=== PATIENT | male | born 1955 | race Caucasian/White ===

== ENCOUNTER 2019-11-30 07:57 | Observation (INO) | payer MEDICARE ==
--- NOTE | 2019-11-28 14:55 | HP ---
AMENDED REPORT: DATE OF SURGERY: 11/30/2019 ANTICIPATED PROCEDURE: Left inguinal hernia. HISTORY OF PRESENT ILLNESS: The patient has moderate sized symptomatic left inguinal hernia. He presents for repair. PAST MEDICAL HISTORY: COPD. Myasthenia gravis. Myositis. ALLERGIES: BACTRIM. IODINATED CONTRAST MEDIA. MEDICATIONS: Per chart. PAST SURGICAL HISTORY: None. SOCIAL HISTORY: Negative. FAMILY HISTORY: Negative. REVIEW OF SYSTEMS: CVS: Negative. PULMONARY: Negative. PHYSICAL EXAMINATION: VITAL SIGNS: Normal. CHEST: Clear. COR: Regular. ABDOMEN: Left inguinal hernia. IMPRESSION: Symptomatic left inguinal hernia. PLAN: Repair.
[~2019-11-30 07:57] MED LIST: KEFZOL 1 GM ONE; Lactated Ringers 1,000 ML IV ONE; Sensorcaine 0.25% 10 ML ONE
[2019-11-30] MEDS ORDERED: CEFAZOLIN 2 GM-D5W BAG** 2 GM/50 ML ML IV ONE ×2 (08:16→08:22)
[2019-11-30] MEDS ORDERED: Decadron 4 MG INJ ONE ×2 (08:19→10:29)
[2019-11-30] MEDS ORDERED: Naropin 0.5% 30 ML VIAL ONE (08:19)
[2019-11-30] MEDS ORDERED: DIPRIVAN 200 MG/20 ML IV ONE (08:20)
[2019-11-30] MEDS ORDERED: Ketamine HCl 50 MG/ML ONE (08:20)
[2019-11-30] MEDS ORDERED: Lactated Ringers 1,000 ML IV SCH (08:30)
[2019-11-30] MEDS ORDERED: Versed 2 MG/2 ML Injection ONE (09:39)
[2019-11-30] MEDS ORDERED: Zofran 4 MG/2 ML VIAL ONE ×2 (09:39→10:29)
[2019-11-30] MEDS ORDERED: TORAdol 30 mg Injection ONE (10:29)
[2019-11-30 11:47] LABS: Appearance CLEAR (CLEAR); Bacteria RARE /HPF (NEGATIVE); Bilirubin NEGATIVE (NEGATIVE); Blood SMALL Ery/ul (0-5); Epithelial Cells RARE /HPF (FEW); Glucose NEGATIVE (NEGATIVE); Ketones NEGATIVE (NEGATIVE); Leukocyte Esterase NEGATIVE (NEGATIVE); Mucus SLIGHT /HPF (NEGATIVE); Nitrite NEGATIVE (NEGATIVE); Protein,Urine Dip NEGATIVE (Negative); RBC 0-2 /HPF (0-2); Specific Gravity 1.003 (1.005-1.025); Urobilinogen NEGATIVE mg/dL (0-1)
--- NOTE | 2019-11-30 14:00 | OP ---
SURGERY DATE/TIME: 11/30/2019 0938 PREOPERATIVE DIAGNOSIS: Left inguinal hernia. POSTOPERATIVE DIAGNOSIS: Left inguinal hernia. PROCEDURE: Left inguinal herniorrhaphy primary repair. No mesh per patient request. SURGEON: kB Judd M.D. ANESTHESIA: Spinal. COMPLICATIONS: None. CONDITION: Stable. ESTIMATED BLOOD LOSS: None. INDICATION: The patient with symptomatic left inguinal hernia. Marked preoperatively. DESCRIPTION OF PROCEDURE: Taken to surgery. Routine prep and drape. 0.25% Marcaine. Curvilinear incision. External oblique opened. External oblique was quite weak, thin and attenuated. Cord skeletonized. Direct hernia present. It was invaginated. It was tucked in with suture #0 Prolene three sutures. Conjoin tendon to Karri's. Relaxing incision made right in the midline 1.5 cm vertical. It came together nicely. Sutures then continued from the conjoin tendon over to the Poupart's ligament. The internal ring was one clamp tight. Hemostasis satisfactory. External oblique closed with 0 Vicryl. Abdifatah approximated with 2-0 Vicryl. Skin closed with 4-0 Vicryl. Steri-Strips applied. Sterile dressing applied. The patient tolerated the procedure satisfactorily.
[2019-11-30 15:22] LABS: Hematocrit 35.8 % (42-50); Hemoglobin 12.3 gm/dl (12.5-18.0)
[2019-11-30] MEDS ORDERED: D5W/0.45NS W/ 20mEq KCl 1000 ML 1,000 ML IV SCH (15:30)
[2019-11-30] MEDS: NORCO 5/325 MG PO PRN (15:56)
[2019-11-30] MEDS ORDERED: Zofran 4 MG/2 ML VIAL IV PRN (16:55)
[2019-11-30] MEDS ORDERED: MORPHINE SULFATE 2 MG INJ IV PRN (16:55)
[2019-11-30] MEDS ORDERED: Ventolin Hfa MDI IH PRN (16:56)
[2019-11-30] MEDS ORDERED: PROVENTIL COMMON CANISTER IH PRN (17:15)
[2019-11-30] MEDS ORDERED: MEDICATION INTERVENTION MC SCH (17:15)
[2019-11-30] MEDS ORDERED: NEURONTIN 300 MG PO SCH (22:00)
[2019-11-30] MEDS ORDERED: NON-FORMULARY ITEM (Atorvastatin Calcium [Atorvastatin Calcium] 10 MG) PO SCH (22:00)
[2019-11-30] MEDS ORDERED: ELAVIL 10 MG PO SCH (22:00)
[2019-11-30] MEDS ORDERED: Zocor 10MG PO SCH (22:00)
[2019-12-01 05:34] LABS: Hemoglobin 10.4 gm/dl (12.5-18.0); Mean Cell Volume 93.7 fl (78-100); Mean Corpuscular Hemoglobin 31.4 pg (26-32); Mean Corpuscular Hgb Concent. 33.5 g/dl (32-36); Mean Platelet Volume 10.1 fl (6-9.5); Platelet Count 244 K/mm3 (150-450); Red Blood Count 3.31 M/mm3 (4.1-5.6); White Blood Count 16.6 K/mm3 (4.0-10.5)
[2019-12-01 07:23] VITALS: BP 137/83; PULSE 84; O2SAT 92
[2019-12-01] MEDS: NORCO 5/325 MG PO PRN (07:46)
[2019-12-01] MEDS ORDERED: DELTASONE 20 MG PO SCH (10:00)
[2019-12-01] MEDS ORDERED: PYRIDOSTIGMINE BROMIDE 60 MG PO SCH (10:00)
[2019-12-01] MEDS ORDERED: VITAMIN B-12 100 MCG PO SCH (10:00)
[2019-12-01] MEDS ORDERED: Protonix 40MG Tablet PO SCH (10:00)
[2019-12-01] MEDS ORDERED: NON-FORMULARY ITEM (Omeprazole [Prilosec] 40 MG) PO SCH (10:00)
== END 2019-12-01 11:00 | disposition home or self-care (01) ==
LOC: SDC 07:57 → MED SURG 16:20
PROVIDERS: ADMIT Surgery; ATTEND Surgery
DX: K40.90 Unilateral inguinal hernia, without obstruction or gangrene, not specified as recurrent (principal); J44.9 Chronic obstructive pulmonary disease, unspecified; G70.00 Myasthenia gravis without (acute) exacerbation; M60.9 Myositis, unspecified; Z79.899 Other long term (current) drug therapy
CPT/HCPCS: 36415; 49505; 64486; 76937; 76942; 81001; 85014; 85018; 85027; 87086; 94760; G0378; 88302; J0690; J1100; J1885; J2250; J2270; J2405; J2704; J2795; A9270-GY